=== PATIENT | female | born 1965 | race Caucasian/White ===

== ENCOUNTER 2020-06-15 17:12 | Emergency (ER) | payer OTHER ==
[~2020-06-15] VITALS: Ht 160 cm; Wt 74.4 kg
[2020-06-15 17:24] VITALS: Ht 160 cm; Wt 74.4 kg
[2020-06-15 18:09] LABS: BASOPHIL % 0.3 % (0-2); PLATELET COUNT 270 x10^3mcL (130-400); RED CELL DISTRIBUTION WIDTH 13.7 % (11.5-14.5)
[2020-06-15 18:32] LABS: CALCIUM 9.3 mg/dL (8.5-10.1); CARBON DIOXIDE 27.7 mmol/L (21-32); CREATININE SERUM 1.1 mg/dL (0.6-1.0); POTASSIUM SERUM 3.6 mmol/L (3.5-5.1)
[2020-06-15 18:43] LABS: ALBUMIN 3.8 g/dL (3.4-5.0); BILIRUBIN TOTAL 0.4 mg/dL (0.20-1.00); TOTAL PROTEIN, SERUM 6.7 g/dL (6.4-8.2)
[2020-06-15 22:25] VITALS: BP 117/58
== END 2020-06-15 22:25 | disposition home or self-care (01) ==
LOC: ED 17:12
PROVIDERS: Student in an Organized Health Care Education/Training Program
DX: M79.661 Pain in right lower leg (principal); M79.621 Pain in right upper arm; R07.89 Other chest pain; R25.2 Cramp and spasm; I10 Essential (primary) hypertension; E11.9 Type 2 diabetes mellitus without complications
CPT/HCPCS: J1885